=== PATIENT | female | born 1945 | race Caucasian/White ===

== ENCOUNTER 2019-08-25 13:53 | Emergency (ER) | payer OTHER, MEDICAID ==
[~2019-08-25] VITALS: Ht 165.1 cm; Wt 90.0 kg
[2019-08-25] MEDS ORDERED: SODIUM CHLORIDE 0.9% 500 ML IV ONE (14:15)
[2019-08-25 15:00] LABS: CHLORIDE 97 mEq/L (98-107)
[2019-08-25 15:23] LABS: BASOPHILS % 1.5 % (0.0-2.0); EOSINOPHILS % 6.4 % (0.0-5.0); HEMATOCRIT. 36.2 % (36.0-48.0); HEMOGLOBIN. 12.6 g/dL (12.0-16.0); LYMPHOCYTES % 16.9 % (20.0-50.0); MEAN CORPUSCULAR HEMOGLOBIN 29.6 pg (28.0-32.0); MEAN PLATELET VOLUME 7.7 fl (7.4-10.4); MONOCYTES % 10.8 % (2.0-8.0); NEUTROPHILS % 64.4 % (40.0-76.0); PLATELET 259 x1000/uL (130-400); RED BLOOD CELL COUNT 4.26 mill/uL (4.2-5.4); RED CELL DISTRIBUTION WIDTH 13.8 % (11.6-14.6)
[2019-08-25 16:46] LABS: CLARITY URINE CLEAR (CLEAR); COLOR URINE YELLOW (YELLOW); KETONES URINE NEGATIVE (NEGATIVE); LEUKOCYTE ESTERASE URINE TRACE (NEGATIVE); NITRITE URINE NEGATIVE (NEGATIVE); OCCULT BLOOD URINE NEGATIVE (NEGATIVE); PH URINE 7.5 (4.5-8.0); PROTEIN URINE NEGATIVE (NEGATIVE); SPECIFIC GRAVITY URINE 1.006 (1.005-1.030); UROBILINOGEN URINE 0.2 E.U./dL (0.2-1.0)
[2019-08-25 16:54] VITALS: BP 155/83
[2019-08-25] MEDS ORDERED: POTASSIUM CHLORIDE 20MEQ TABLET SR PO ONE (17:45)
== END 2019-08-25 19:27 | disposition home or self-care (01) ==
LOC: ER 14:23
DX: R55 Syncope and collapse (principal); I10 Essential (primary) hypertension; R42 Dizziness and giddiness; R61 Generalized hyperhidrosis
CPT/HCPCS: 36415; 71045; 80053; 81003; 82962; 83690; 83880; 84484; 85025; 93005; 99285; J7040